=== PATIENT | female | born 1940 | race Asian ===

== ENCOUNTER 2025-01-18 02:08 | Inpatient (IN) | payer OTHER, SELFPAY ==
[2025-01-17 21:08] VITALS: BP 163/73
[2025-01-17 21:25] LABS: % Basophils 0.8 % (0-2); % Eosinophils 4.5 % (0-6); % Immature Granulocytes 0.5 % (0-0.5); % Lymphocytes 22.6 % (20.5-51.1); % Neutrophils 59.6 % (42.2-75.2); Absolute Basophils 0.1 10^3/uL (0-0.2); Absolute Eosinophils 0.5 10^3/uL (0-0.7); Absolute Immature Granulocytes 0.1 10^3/uL (0-0.05); Absolute Lymphocytes 2.4 10^3/uL (1.2-3.4); Absolute Monocytes 1.3 10^3/uL (0.1-0.6); Absolute Neutrophils 6.3 10^3/uL (1.4-6.5); Hematocrit 37.1 % (37.0-47.0); Hemoglobin 12.1 g/dL (12.0-16.0); Mean Corp Hgb Conc. 32.6 g/dL (33.0-37.0); Mean Corpuscular Hgb 29.1 pg (27.0-31.0); Mean Corpuscular Volume 89.2 fL (81.0-99.0); Mean Platelet Volume 9.5 fL (7.4-10.4); Nucleated Red Blood Cells % 0 %; Platelet Count 441 10^3/uL (130-400); Red Blood Cell Count 4.16 10^6/uL (4.20-5.40); Red Cell Dist. Width 14.4 % (11.5-14.5); White Blood Cell Count 10.6 10^3/uL (4.8-10.8)
[2025-01-17 21:48] LABS: ALT (SGPT) 15 U/L (0-35); AST (SGOT) 16 U/L (14-36); Albumin 4.5 g/dl (3.5-5.0); Alkaline Phosphatase 100 U/L (38-126); Blood Urea Nitrogen 30 mg/dl (7-17); Calcium 9.4 mg/dl (8.4-10.2); Carbon Dioxide 21 mmol/L (22-30); Chloride 102 mmol/L (98-107); Glucose 111 mg/dl (70-99); Potassium 6.1 mmol/L (3.5-5.1); Sodium 136 mmol/L (135-145); Total Bilirubin 0.5 mg/dl (0.2-1.3); Total Protein 8.1 g/dl (6.3-8.2)
[2025-01-17 22:07] VITALS: BP 163/76
[2025-01-17 22:12] VITALS: BMI 26.5
[2025-01-17 23:00] VITALS: BP 145/61
[2025-01-18] VITALS (11 sets, daily range): BP systolic 125–161; BP diastolic 61–79; BMI 26.9
--- NOTE | 2025-01-18 00:01 | ED.GENMED ---
History of Present Illness
General
Chief Complaint: Abnormal Lab Value
Source: patient
Exam Limitations: none
Time Seen by Provider: 01/17/25 22:09
Nursing documentation reviewed up to this point in time: agreed with
History of Present Illness
History of Present Illness:
Patient is an 84-year-old female with past medical history of coronary disease, congestive heart failure anemia hypertension asthma was brought to the ER by family. Patient is from [facility] she has been here since November and is planning to return to
[facility] in April. She has been here however several times in the past. She does have a history of kidney issues for the past year. She was sent for abnormal potassium. Patient has been feeling tired but no other complaints. Blood work was
brought by family shows a creatinine of 2.65 taken October 2024. She still does make urine.
She denies any chest pain shortness of breath/fever chills.
She does still make urine.
Past History
Past History
ED Past Medical History: HTN and Other (Restless leg)
ED Past Surgical History: Cholecystectomy, and Orthopedic (Knee replacement)
Social History
Tobacco: Non-smoker
Alcohol: None
Drug: None
Living: with family
Employment: Retired
Review of Systems
Review of Systems
Allergies reviewed?: Yes
Other source history: family
All Other Systems: ROS reviewed and negative except as documented in HPI and ROS
Constitutional: Reports fatigue; Denies fever or chills
EENT: Reports no symptoms
Respiratory: Reports no symptoms
Cardiac: Reports no symptoms
ABD/GI: Reports no symptoms
: Reports no symptoms
Musculoskeletal: Reports no symptoms
Skin: Reports no symptoms
Neurological: Reports no symptoms
Psychiatric: Reports no symptoms
Phy Exam
General Physical Exam
General Presentation: well appearing
General age: appears stated age
General Skin: warm and dry
General Habitus: normal
General Mental: alert
General Hydration: appears well hydrated
Cardiovascular Exam
Cardiovascular Exam: regular rate/rhythm, no murmur and normal peripheral pulses
Pulmonary Exam
Pulmonary Exam: lungs clear and no respiratory distress
Neurological Exam
Neurological Exam: alert and oriented x3
Musculoskeletal Exam
Musculoskeletal Exam: full ROM
Skin Exam
Skin Exam: normal color and warm/dry
Psychiatric Exam
Psychiatric Exam: normal mood/affect
Course
Orders/Labs/Results
Orders:
Orders
01/17/25 21:08
EKG [Electrocardiogram (*1)] Urgent
Reason for Study: Chest Pain
01/17/25 21:09
EKG- Treatment ONCE
01/17/25 21:19
CBC/With Diff [Complete Blood Count/With Diff] Urgent
CMP [Comprehensive Metabolic Panel] Urgent
01/18/25 00:07
Sodium Zirconium Cyclosilicate [Lokelma] 10 gram PO NOW STA
01/18/25 00:13
Cardiac Monitoring- Treatment ONCE
Dextrose 50%-Water [Dextrose 50% Syringe] 25 grams IV NOW STA
Insulin Human Regular [Novolin R] 5 units IV NOW STA
01/18/25 00:14
Sodium Bicarbonate 50 meq IV NOW STA
Bedside Glucose PRE IV Insulin- HyperK+ NOW
01/18/25 00:15
UA Reflex to Culture [Urinalysis Reflex To Culture] Urgent
01/18/25 00:46
Insulin Human Regular [Novolin R] 100 units .ROUTE .STK-MED ONE
01/18/25 01:34
EKG [Electrocardiogram (*1)] Urgent
Reason for Study: Other
Other Reason for Exam: admission
EKG- Treatment ONCE
01/18/25 01:44
Bedside Glucose POST IV Insulin- HyperK+ Q1HX2,Q2HX2
01/18/25 02:00
Flush (0.9% Sodium Chloride) [Flush (Nss)] See Dose Instructions IV PER PROTOCOL
01/18/25 02:44
Potassium Urgent
Comment: draw 2 hours after regular insulin IV administration
Abnormal Lab Results
01/17/25 01/18/25 01/18/25
21:19 00:27 01:07
RBC 4.16 L 10^6/uL
(4.20-5.40)
MCHC 32.6 L g/dL
(33.0-37.0)
Plt Count 441 H 10^3/uL
(130-400)
Abs Immat Gran (auto) 0.1 H 10^3/uL
(0-0.05)
Absolute Monos (auto) 1.3 H 10^3/uL
(0.1-0.6)
Monocytes % 12.0 H %
(1.7-9.3)
Potassium 6.1 H* mmol/L
(3.5-5.1)
Carbon Dioxide 21 L mmol/L
(22-30)
BUN 30 H mg/dl
(7-17)
Creatinine 3.1 H mg/dL
(0.6-1.0)
Glucose 111 H mg/dl
(70-99)
POC Glucose 103 H mg/dl 230 H mg/dl
(70-99) (70-99)
01/18/25
01:34
RBC
MCHC
Plt Count
Abs Immat Gran (auto)
Absolute Monos (auto)
Monocytes %
Potassium
Carbon Dioxide
BUN
Creatinine
Glucose
POC Glucose 194 H mg/dl
(70-99)
01/17/25 21:19
Vital Signs
Initial and Last Documented VS:
Initial Vital Signs
Temp Pulse Resp BP Pulse Ox
98.3 F 85 15 163/73 99
01/17/25 21:08 01/17/25 21:08 01/17/25 21:08 01/17/25 21:08 01/17/25 21:08
Last Documented Vital Signs
Temp Pulse Resp BP Pulse Ox
98.3 F 71 18 145/61 99
01/17/25 21:08 01/17/25 23:00 01/17/25 23:00 01/17/25 23:00 01/17/25 23:00
Aircraft Design Engineer consulted with Physician
Aircraft Design Engineer consulted with physician?: Yes
Name of Physician Consulted: Columba
MDM/Problems Addressed
Differential Diagnosis Includes:
Renal failure hyperkalemia
MDM/Problems Addressed:
Patient is a 84-year-old female with chronic renal issues from [facility] visiting from November 2024 and planning to go back to [facility] in April presents for evaluation of elevated potassium. She had elevated blood potassium on outpatient blood work.
Patient denies any chest pain shortness of breath she does feel tired however no other complaints she does still make urine. Her potassium here is 6 .1 creatinine is 3.1 bun 30.
No acute findings on EKG. Case discussed ED physician hyperkalemic meds ordered. Will admit patient for further evaluation will need nephrology consult.
Chronic conditions affecting care:
Chronic renal issues
*Pulse Oximetry
Patient hypoxic: no
*EKG
Interpreted by ED Provider?: Yes
Heart Rate: 76
Rate: normal
Rhythm: sinus
Ischemia: no ischemia
*Critical Care Note
Total Time (30-74mins, 75-104mins- exclusive of procedures): Not Applicable
ED Attending Note
-
Portions of this chart may have been created with voice recognition software.� Occasional wrong word or��sound alike� substitutions may have occurred due to the inherent limitations of voice recognition software.
Discharge Plan
Departure
Patient Disposition: Admit
Date of Disposition: 01/18/25
Time of Disposition: 00:19
Admit to: Telemetry
Admit to doctor: hospitalist
Presentation/result/management discussed w/ accepting MD/DO: Hospitalist
Patient with high blood pressure during this ER visit?: Yes
Condition: Fair
Covid-19: Not Applicable
Discharge Problem:
Acute hyperkalemia, Acute on chronic renal insufficiency
Prescriptions:
No Action
desloratadine 5 mg Tablet
5 mg PO DAILY
montelukast 10 mg Tablet
10 mg PO DAILY
multivitamin Capsule
2 cap PO DAILY
gabapentin 300 mg Tablet
300 mg PO HS
losartan-hydrochlorothiazide 50-12.5 mg Tablet
1 tab PO DAILY
Alpha-Ketoglutaric Acid Capsule
1 cap PO TID
torsemide 10 mg Tablet
10 mg PO DAILY
sodium bicarbonate 650 mg Tablet
1,000 mg PO BID
ferrous sulfate 27 mg iron Tablet
27 mg PO DAILY
Referrals:
Dnany Baugh MD [Family Provider] -
Interventions
Interventions:
*Risk Screen - Suicide Last Done: 01/17/25 21:08
*General Assessment Last Done: 01/17/25 21:08
*Neglect/Abuse Screening Last Done: 01/17/25 21:08
*ED- Fall Risk Assessment Last Done: 01/17/25 22:12
*ED COVID-19 Vaccine History Last Done: 01/17/25 22:12
Discharge Date and Time
Print Language: MONGOLIAN
[2025-01-18 00:29] LABS: Glucose - Point of Care 103 mg/dl (70-99)
[2025-01-18] MEDS: DEXTROSE 50% SYRINGE 25 GRAMS IV ×3 (00:33→20:24)
[2025-01-18] MEDS: NOVOLIN R 5 UNITS IV (00:33)
[2025-01-18] MEDS: LOKELMA 10 GRAM PO ×3 (00:34→17:29)
[2025-01-18] MEDS: SODIUM BICARBONATE 50 MEQ IV (00:34)
[2025-01-18 01:09] LABS: Glucose - Point of Care 230 mg/dl (70-99)
[2025-01-18 01:36] LABS: Glucose - Point of Care 194 mg/dl (70-99)
--- NOTE | 2025-01-18 01:39 | HPS.HSE ---
Family Physician
-
Family Physician: Danny Baugh
Chief Complaint
-
Abnormal Labs / Fatigue
History of Present Illness
Patient is an 84y F with PMH significant for hypertension and CKD who presents to ED for evaluation of abnormal labs. Patient is visiting from [place]. Family states that she has seemed very fatigued and so she had labs done on 01/15. These
showed abnormal SCr and potassium and patient was advised to present to the ED for further evaluation.
Patient complains of general fatigue. She reports some back pain that tends to occur with standing / activity. This is mostly L-sided.
No urinary complaints.
No recent medication changes.
No other new complaints.
Medical History
Past Medical History
Past Medical History: Reports Other
Additional Past Medical History:
Hypertension
CKD IV
Chronic HFpEF
Anemia of CKD
Past Surgical History: Reports Other
Additional Past Surgical History:
Cholecystectomy
Bilateral TKA
x 2
Social History
Tobacco: Non-smoker
Alcohol: None
Drug: None
Family History
Family History: Other (Mother: CKD)
Allergies / Home Medications
Allergies reflects when Allergies were last updated in [employer].
Home Medications with original date entered in [employer]
Allergy/Medication List:
Losartan / HCT 50/12.5mg one PO daily
Torsemide 10mg one PO daily
[place] XT one PO TID (renal supplement for CKD)
Cilnidipine 10mg one PO TID
Iron 30mg one PO daily
Desidustat 150mg one PO MOWEFR
Sodium Bicarbonate 1000mg one PO daily
Review of Systems
-
History Source: Patient and Family
A 12 point ROS was completed and negative except as noted: Yes
Constitutional: Reports Fatigue; Denies Fever or Chills
Respiratory: Denies Cough or Trouble Breathing
Cardiac: Denies Chest Pain or Palpitations
Abdomen/GI: Denies Abdominal Pain, Nausea, Vomiting or Diarrhea
: Denies Dysuria or Frequency
Musculoskeletal: Reports Other (Back pain); Denies Edema
Neurological: Denies Dizzy or Headache
Psych: Denies Depression or Anxiety
Physical Exam
Vital Signs
Vital Signs
Temp Pulse Resp BP Pulse Ox
98.3 F 71 18 145/61 99
01/17/25 21:08 01/17/25 23:00 01/17/25 23:00 01/17/25 23:00 01/17/25 23:00
Physical Exam
General: Other (84y F in no acute distress.)
HEENT: Moist mucous membranes and PERRLA
Respiratory: Clear; No Wheezes, Rales or Rhonchi
Cardiac: S1/S2 and Regular Rhythm; No Murmur
GI: Soft, Non Tender, Non Distended and Normal Bowel Sounds
Musculoskeletal: No Clubbing, No Cyanosis and No Edema
Neuro: AO x 3
Laboratory Results
-
01/17/25 21:19
Laboratory Results
Total Bilirubin 0.5 mg/dl (0.2-1.3) 01/17/25 21:19
AST 16 U/L (14-36) 01/17/25 21:19
ALT 15 U/L (0-35) 01/17/25 21:19
Alkaline Phosphatase 100 U/L (38-126) 01/17/25 21:19
Impression/Plan
-
A/P: Patient is an 84y F with PMH significant for hypertension and CKD who presents to ED for evaluation of fatigue and abnormal labs.
ISABEL on CKD IV
Hyperkalemia
Chronic Metabolic Acidosis
- Admit for further evaluation and treatment.
- SCr = 3.1 compared to baseline of 2.65 (labs from [place] in October 2024). Was 3.28 on 01/15/25.
- Potassium = 6.1 today - 4.8 on prior labs.
- EKG unremarkable without apparent hyperkalemia changes.
- Hold losartan acutely. Hold diuretics for now.
- IVF support overnight and follow for improvement in labs.
- Continue NaHCO3 supplementation / adjust dose.
- Nephrology evaluation in the AM for additional recommendations.
- Check renal US.
Benign Hypertension
- BP stable in the ED.
- Holding meds acutely as noted above.
- Add CCB if needed for BP control (takes cilnidipine from [place] - 10mg TID).
Chronic HFpEF
- No evidence of volume overload on exam.
- Hold torsemide as noted above.
- Follow I/Os, daily weights, etc.
Anemia of Chronic Disease
- Hgb increased from prior / known baseline.
- Follow for changes.
- Hold oral iron / EPO agents acutely.
DVT Prophylaxis: Subcut Heparin
Code Status: Full
[2025-01-18 02:05] LABS: Urine Albumin 3+ (Neg - Trace); Urine Bilirubin Negative (Negative); Urine Character Clear (Clear); Urine Color Yellow; Urine Glucose 1+ (Negative); Urine Ketone Negative (Negative); Urine Leukocyte Negative (Negative); Urine Nitrite Negative (Negative); Urine Occult Blood Negative (Negative); Urine Urobilinogen Negative (Neg - 1+)
[2025-01-18 02:35] LABS: Glucose - Point of Care 125 mg/dl (70-99)
[2025-01-18 02:49] LABS: Urine Amorphous Seen; Urine Bacteria Few (Negative); Urine Red Blood Cell 0-2 /HPF (0-2); Urine White Cell 0-2 /HPF (0-5)
[2025-01-18 02:56] LABS: Potassium 4.5 mmol/L (3.5-5.1)
[2025-01-18] MEDS: NSS 1000 IV ×2 (03:37→14:57)
[2025-01-18 04:36] LABS: Glucose - Point of Care 68 mg/dl (70-99)
--- NOTE | 2025-01-18 04:53 | TRANSFER ---
Pt brought up from the ED on a stretcher. Pt ambulated w/ walker (personal cane not available) ax1. Oriented to the room. Family (son/ granddaughter) helped settle the pt and answer admission questions. Pt and family were updated on plan of care for
the night. Family expressed that they would like to be called during rounds ( pt has a personal cell phone at the bedside to use). pt resting with call still and personal belongings within reach.
[2025-01-18 05:00] LABS: Glucose - Point of Care 84 mg/dl (70-99)
[2025-01-18 06:46] LABS: Glucose - Point of Care 86 mg/dl (70-99)
[2025-01-18 07:13] LABS: Hematocrit 32.2 % (37.0-47.0); Hemoglobin 10.6 g/dL (12.0-16.0); Mean Corp Hgb Conc. 32.9 g/dL (33.0-37.0); Mean Corpuscular Hgb 29.4 pg (27.0-31.0); Mean Corpuscular Volume 89.2 fL (81.0-99.0); Mean Platelet Volume 10.3 fL (7.4-10.4); Platelet Count 405 10^3/uL (130-400); Red Blood Cell Count 3.61 10^6/uL (4.20-5.40); Red Cell Dist. Width 14.4 % (11.5-14.5); White Blood Cell Count 8.8 10^3/uL (4.8-10.8)
--- NOTE | 2025-01-18 08:09 | W.PN.HOSP.TC ---
Today's Communication/Plan
-
Persistent hyperkalemia with possible mild hyperkalemia EKG changes -- ordered calcium gluconate, Insulin, Dextrose, Lokelma. Bicarb increased,
Recheck potassium/BMP this evening
Assessment / Plan
Assessment / Plan
Physical Exam
General: Not in acute distress
HEENT: Moist mucous membranes
Respiratory: Clear to Auscultation Bilaterally
Cardiac: S1/S2 and Regular Rate Rhythm
GI: Soft, Non Tender, Non Distended and Normal Bowel Sounds
Musculoskeletal: No Cyanosis and No Edema
Neuro: AAO x 3
Assessment/Plan
84y F with PMH significant for hypertension and CKD who presents to ED for evaluation of abnormal labs. Patient is visiting from [facility]. Family stated that she had seemed very fatigued and so she had labs done on 01/15/25. These showed abnormal
SCr and potassium and patient was advised to present to the ED for further evaluation.
Patient complained of general fatigue. She reported some back pain that tends to occur with standing / activity. This is mostly L-sided.
No urinary complaints.
No recent medication changes.
No other new complaints.
ISABEL on CKD IV
Hyperkalemia
Chronic Metabolic Acidosis
- Admit for further evaluation and treatment.
- SCr = 3.1 compared to baseline of 2.65 (labs from [facility] in October 2024). Was 3.28 on 01/15/25.
- Potassium = 6.1 today - 4.8 on prior labs.
- EKG unremarkable without apparent hyperkalemia changes.
- Stop Losartan indefinitely. Hold diuretics for now.
- IVF support overnight and follow for improvement in labs.
- Continue NaHCO3 supplementation -- dose increased
- Nephrology evaluation in the AM for additional recommendations.
- Additional (second) hyperkalemia regimen with Lokelma and Insulin/Dextrose given on 01/18/25 given potassium still high at 5.9
- EKG with sharp looking T waves and borderline prolonged WI interval, and in the setting of hyperkalemia --> provided 1 gram Calcium Gluconate
- Follow-up renal US.
Benign Hypertension
- BP stable in the ED.
- Holding meds acutely as noted above.
- Add CCB if needed for BP control (takes cilnidipine from [place] - 10mg TID).
Chronic HFpEF
- No evidence of volume overload on exam.
- Hold torsemide as noted above.
- Follow I/Os, daily weights, etc.
Anemia of Chronic Disease
- Hgb increased from prior / known baseline.
- Follow for changes.
- Hold oral iron / EPO agents acutely.
DVT Prophylaxis: Subcutaneous Heparin
Code Status: Full Code
Anticipated Discharge: 24 - 48 hours
Subjective/Interval History
-
Date of Service: January 18, 2025
Patient was seen and examined. She denied any symptoms or complaints.
Objective Data
-
Labs:
Laboratory Results
01/17/25 01/18/25 01/18/25
21:19 02:36 06:21
WBC 10.6 8.8
Hgb 12.1 10.6 L
Hct 37.1 32.2 L
Plt Count 441 H 405 H
Sodium 136 Pending
Potassium 6.1 H* 4.5 D Pending
Chloride 102 Pending
Carbon Dioxide 21 L Pending
BUN 30 H Pending
Creatinine 3.1 H Pending
Glucose 111 H Pending
Calcium 9.4 Pending
Total Bilirubin 0.5
AST 16
ALT 15
Alkaline Phosphatase 100
Vital Signs:
Vital Signs
Temp Pulse Resp BP Pulse Ox
98.0 F 74 20 157/74 100
01/18/25 03:20 01/18/25 03:20 01/18/25 03:20 01/18/25 03:20 01/18/25 03:20
[2025-01-18] MEDS: SODIUM BICARBONATE 650 MG PO (09:09)
[2025-01-18] MEDS: HEPARIN 5000 UNITS SC ×2 (09:09→20:26)
[2025-01-18 09:15] LABS: Glucose - Point of Care 86 mg/dl (70-99)
[2025-01-18 10:28] LABS: Blood Urea Nitrogen 29 mg/dl (7-17); Calcium 8.8 mg/dl (8.4-10.2); Carbon Dioxide 16 mmol/L (22-30); Chloride 105 mmol/L (98-107); Estimated Creatinine Clearance 12 ml/min; Glucose 86 mg/dl (70-99); Potassium 5.9 mmol/L (3.5-5.1); Sodium 136 mmol/L (135-145); eGFR 14.77
[2025-01-18 12:10] LABS: Glucose - Point of Care 75 mg/dl (70-99)
--- NOTE | 2025-01-18 12:49 | CM ---
Spoke with patient's daughter to obtain information for assessment. Patient lives in [place] but [place] now visiting her daughter. She is staying in a two story home with two steps to enter. She does need some
assistance with dressing, bathing, personal care and ADLs. Patient's 25 y/o granddaughter is with her throughout the day and she is home in the evenings. She uses a walker to assist with her ambulation but also has a cane as well as a stair glide.
She has a nebulizer and an o2 concentrator but hasn't been using it. Patient's daughter and granddaughter do all of the cooking, cleaning, laundry and coil binder. Patient has not had VN services. She has not been to a SNF.
Patient has a prescription plan and uses, [facility] in [place] for all of her medications.
Her PCP is Danny Baugh.
Plan: Case management will continue to follow and assist with discharge planning. Patient does not have [employer] insurance. Will have to confirm that she met with [facility] rep.
--- NOTE | 2025-01-18 12:52 | PTCARENOTE ---
Pt is being trf'd to IMU for hyperkalemia protocol.
[2025-01-18] MEDS: NOVOLIN R 0.05 UNITS IV ×2 (14:33→20:25)
[2025-01-18 14:44] LABS: Glucose - Point of Care 165 mg/dl (70-99)
[2025-01-18] MEDS: CALCIUM GLUCONATE 100 IV (14:56)
[2025-01-18] MEDS: LOKELMA PO (15:02)
--- NOTE | 2025-01-18 15:02 | W.CON.NEPH ---
Consultation
-
Date/Time Consultation Requested: January 17, 2025 at 10 PM
Date/Time Consultation Performed: January 18, 2025 at 3 PM
Requesting Provider: Dr. Kaiser
Performing Provider: Dr. Nunez
Reason for Consultation: Acute on chronic kidney disease and hyperkalemia
Medical History
-
Chief Complaint: Hyperkalemia
History of Present Illness:
84y F with PMH significant for hypertension and CKD who presents to ED for evaluation of abnormal labs. Patient is visiting from [facility]. Family states that she has seemed very fatigued and so she had labs done on 01/15. These showed abnormal SCr
and potassium and patient was advised to present to the ED for further evaluation.
Patient follows with nephrology in [facility] with baseline creatinine 2.7 with estimated GFR of 17 mL/min reviewed outpatient records.
Labs here in [facility] creatinine 3.6 with a potassium of 6.8
Hospital labs creatinine 3.2 potassium 6.1 treated medical management repeat 5.9
Past Medical History
CKD stage IV anemia of chronic disease, hypertension
Social History
Tobacco: Non-Smoker
Alcohol: None
Allergies / Home Medications
Allergy/AdvReac Type Severity Reaction Status Date / Time
No Known Allergies Allergy Unverified 05/14/22 22:51
�Medication �Instructions �Recorded �Confirmed �Type
desloratadine 5 mg tablet 5 mg PO DAILY Allergies 05/14/22 01/18/25 History
gabapentin 300 mg tablet 300 mg PO HS Neuropathy/RLS 05/14/22 01/18/25 History
montelukast 10 mg tablet 10 mg PO DAILY asthma 05/14/22 01/18/25 History
multivitamin 2 cap PO DAILY Supplement 05/14/22 01/18/25 History
amino acids 1 cap PO TID 01/18/25 01/18/25 History
ferrous sulfate 27 mg iron tablet 27 mg PO DAILY 01/18/25 01/18/25 History
losartan 50 mg-hydrochlorothiazide 1 tab PO DAILY 01/18/25 01/18/25 History
12.5 mg tablet
sodium bicarbonate 650 mg tablet 1,000 mg PO BID 01/18/25 01/18/25 History
torsemide 10 mg tablet 10 mg PO DAILY 01/18/25 01/18/25 History
Review of Systems
-
Generalized weakness
All other systems: Negative unless noted
Physical Exam
Vital Signs
Vital Signs
Temp Pulse Resp BP Pulse Ox
98.0 F 72 18 145/74 100
01/18/25 14:26 01/18/25 11:39 01/18/25 11:39 01/18/25 11:39 01/18/25 11:39
Lab Results
WBC 8.8 10^3/uL (4.8-10.8) 01/18/25 06:21
RBC 3.61 10^6/uL (4.20-5.40) L 01/18/25 06:21
Hgb 10.6 g/dL (12.0-16.0) L 01/18/25 06:21
Hct 32.2 % (37.0-47.0) L 01/18/25 06:21
Plt Count 405 10^3/uL (130-400) H 01/18/25 06:21
Sodium 136 mmol/L (135-145) 01/18/25 06:21
Chloride 105 mmol/L (98-107) 01/18/25 06:21
Carbon Dioxide 16 mmol/L (22-30) L 01/18/25 06:21
BUN 29 mg/dl (7-17) H 01/18/25 06:21
Creatinine 3.0 mg/dL (0.6-1.0) H 01/18/25 06:21
eGFR 14.77 01/18/25 06:21
Glucose 86 mg/dl (70-99) 01/18/25 06:21
Calcium 8.8 mg/dl (8.4-10.2) 01/18/25 06:21
Albumin 4.5 g/dl (3.5-5.0) 01/17/25 21:19
Physical Exam
General no acute distress
HEENT no cephalic atraumatic extraocular muscle intact no scleral icterus no JVD neck supple
lungs clear to auscultation bilateral
heart regular S1-S2 positive
abdomen soft nontender positive bowel sounds
extremities no edema pulses present bilateral
Neurologically nonfocal alert and oriented x 3
Skin no lesions no abrasions no petechiae
Psych normal affect no bizarre behavior
Data Reviewed
-
Labs: Labs Reviewed by me, Discussed with Nurse, Discussed with Patient and Discussed with Family
Assessment/Plan
-
84y F with PMH significant for hypertension and CKD who presents to ED for evaluation of abnormal labs. Patient is visiting from [place]. Family states that she has seemed very fatigued and so she had labs done on 01/15. These showed abnormal SCr
and potassium and patient was advised to present to the ED for further evaluation.
Patient follows with nephrology in [facility] with baseline creatinine 2.7 with estimated GFR of 17 mL/min reviewed outpatient records.
Labs here in [facility] creatinine 3.6 with a potassium of 6.8
Hospital labs creatinine 3.2 potassium 6.1 treated medical management repeat 5.9
Impression.
Chronic kidney disease stage IV
Hyperkalemia
Hypertension
Metabolic acidosis
Plan.
Redosed Lokelma with insulin and glucose as well as calcium with mild EKG change
Repeat labs at about 6 PM tonight
No acute need for dialysis
Increase bicarbonate to 2 tablets 3 times a day she takes 1 g twice daily
Discontinue losartan indefinite
Discussed with the family at bedside
--- NOTE | 2025-01-18 15:47 | PTCARENOTE ---
Pt arrived at 1420 with family at bedside. Accu check done D50 25 grams given insulin given Q1 hr acucheck in progress, then q2. Pt is AAAOx3 speaks some [place]ib[place]ian understands more.
[2025-01-18 15:52] LABS: Glucose - Point of Care 147 mg/dl (70-99)
[2025-01-18 16:43] LABS: Glucose - Point of Care 112 mg/dl (70-99)
[2025-01-18] MEDS: SODIUM BICARBONATE 1300 MG PO ×2 (17:29→21:30)
[2025-01-18 18:47] LABS: Glucose - Point of Care 91 mg/dl (70-99)
[2025-01-18 19:11] LABS: Blood Urea Nitrogen 25 mg/dl (7-17); Calcium 9.6 mg/dl (8.4-10.2); Carbon Dioxide 22 mmol/L (22-30); Chloride 106 mmol/L (98-107); Estimated Creatinine Clearance 14 ml/min; Glucose 104 mg/dl (70-99); Potassium 5.8 mmol/L (3.5-5.1); Sodium 137 mmol/L (135-145); eGFR 16.76
[2025-01-18 20:35] LABS: Glucose - Point of Care 136 mg/dl (70-99)
[2025-01-18] MEDS: NEURONTIN 300 MG PO (21:29)
[2025-01-18 21:39] LABS: Glucose - Point of Care 159 mg/dl (70-99)
[2025-01-18 22:35] LABS: Glucose - Point of Care 154 mg/dl (70-99)
[2025-01-18 22:42] LABS: Potassium 4.6 mmol/L (3.5-5.1)
--- NOTE | 2025-01-18 23:11 | PTCARENOTE ---
Assumed care for patient overnight, received report from heidi RN. Pt AAOx3, speaks minimal Setswana. Pt had daughter at bedside. K 5.8 PAYAM Jenkins made aware, order for dextrose and insulin in and administered. K down to 4.6. Pt and daughter
educated on hyperkalemia protocol and POC reinforced. IVF cont. Pt ambulating to the bathroom with standby assistance and RW. NSR on the monitor with 1st degree heart block. Pt on room air SpO2 99%. After ambulation pt slightly dyspneic with
expiratory wheeze. Oral care and hygiene done. Call still is within reach. Pt utilizing the call still appropriately.
[2025-01-19] VITALS (13 sets, daily range): BP systolic 107–169; BP diastolic 55–93; BMI 27.0
[2025-01-19] MEDS: NSS 1000 IV (00:39)
[2025-01-19 00:46] LABS: Glucose - Point of Care 91 mg/dl (70-99)
[2025-01-19 02:41] LABS: Glucose - Point of Care 71 mg/dl (70-99)
[2025-01-19] MEDS: LOKELMA 10 GRAM PO ×3 (05:48→18:26)
[2025-01-19 06:04] LABS: % Basophils 0.9 % (0-2); % Eosinophils 6.7 % (0-6); % Immature Granulocytes 0.3 % (0-0.5); % Lymphocytes 21.7 % (20.5-51.1); % Monocytes 12.1 % (1.7-9.3); % Neutrophils 58.3 % (42.2-75.2); Absolute Basophils 0.1 10^3/uL (0-0.2); Absolute Eosinophils 0.6 10^3/uL (0-0.7); Absolute Lymphocytes 1.9 10^3/uL (1.2-3.4); Absolute Monocytes 1.1 10^3/uL (0.1-0.6); Absolute Neutrophils 5.2 10^3/uL (1.4-6.5); Hemoglobin 10.8 g/dL (12.0-16.0); Mean Corp Hgb Conc. 32.7 g/dL (33.0-37.0); Mean Corpuscular Hgb 29.5 pg (27.0-31.0); Mean Corpuscular Volume 90.2 fL (81.0-99.0); Mean Platelet Volume 9.9 fL (7.4-10.4); Nucleated Red Blood Cells % 0 %; Platelet Count 381 10^3/uL (130-400); Red Blood Cell Count 3.66 10^6/uL (4.20-5.40); Red Cell Dist. Width 14.7 % (11.5-14.5); White Blood Cell Count 8.9 10^3/uL (4.8-10.8)
[2025-01-19 06:31] LABS: Blood Urea Nitrogen 21 mg/dl (7-17); Calcium 8.5 mg/dl (8.4-10.2); Carbon Dioxide 22 mmol/L (22-30); Chloride 111 mmol/L (98-107); Estimated Creatinine Clearance 14 ml/min; Glucose 83 mg/dl (70-99); Magnesium 1.6 mg/dl (1.6-2.3); Potassium 5.2 mmol/L (3.5-5.1); Sodium 140 mmol/L (135-145); eGFR 17.54
[2025-01-19] MEDS: HEPARIN 5000 UNITS SC ×2 (08:54→19:52)
[2025-01-19] MEDS: SODIUM BICARBONATE 1300 MG PO ×3 (08:54→22:01)
--- NOTE | 2025-01-19 10:55 | W.PN.HOSP.TC ---
Today's Communication/Plan
-
Stop IVF
c/w Lokelma
Add amlodipine for bP
Assessment / Plan
Assessment / Plan
Physical Exam
General: Not in acute distress
HEENT: Moist mucous membranes
Respiratory: Clear to Auscultation Bilaterally
Cardiac: S1/S2 and Regular Rate Rhythm
GI: Soft, Non Tender, Non Distended and Normal Bowel Sounds
Musculoskeletal: No Cyanosis and No Edema
Neuro: AAO x 3
Psych: calm
Assessment/Plan
84y F with PMH significant for hypertension and CKD who presents to ED for evaluation of abnormal labs. Patient is visiting from [facility]. Family stated that she had seemed very fatigued and so she had labs done on 01/15/25. These showed abnormal
SCr and potassium and patient was advised to present to the ED for further evaluation.
Patient complained of general fatigue. She reported some back pain that tends to occur with standing / activity. This is mostly L-sided.
No urinary complaints.
No recent medication changes.
No other new complaints.
ISABEL on CKD IV
Hyperkalemia
Chronic Metabolic Acidosis
- Admit for further evaluation and treatment.
- SCr = 3.1 compared to baseline of 2.65 (labs from [facility] in October 2024). Was 3.28 on 01/15/25.
- Potassium = 5.2 - 4.8 on prior labs.
- EKG unremarkable without apparent hyperkalemia changes.
- Stop Losartan indefinitely. Hold diuretics for now.
- IVF support overnight and follow for improvement in labs.
- Continue NaHCO3 supplementation -- dose increased ( Increase bicarbonate to 2 tablets 3 times a day she takes 1 g twice daily)
- Nephrology evaluation in the AM for additional recommendations.
- Additional (second) hyperkalemia regimen with Lokelma and Insulin/Dextrose given on 01/18/25 given potassium still high at 5.9
- EKG with sharp looking T waves and borderline prolonged AK interval, and in the setting of hyperkalemia --> provided 1 gram Calcium Gluconate
- Follow-up renal US.
Benign Hypertension
- BP stable in the ED.
-Add amlodipine for BP (takes cilnidipine from [facility] - 10mg TID).
Chronic HFpEF
- No evidence of volume overload on exam.
- Resume torsemide upon dc
- Follow I/Os, daily weights, etc.
Anemia of Chronic Disease
- Hgb increased from prior / known baseline.
- Follow for changes.
- Hold oral iron / EPO agents acutely.
DVT Prophylaxis: Subcutaneous Heparin
Code Status: Full Code
Total time spent to see the patient, examine the patient, review data and lab result, discuss treatment plan with the patient, nursing staff around 55 minutes
Anticipated Discharge: 24 - 48 hours
Subjective/Interval History
-
Date of Service: January 19, 2025
No sob
No chest pain
Objective Data
-
Labs:
Laboratory Results
01/19/25
05:49
WBC 8.9
Hgb 10.8 L
Hct 33.0 L
Plt Count 381
Sodium 140
Potassium 5.2 H
Chloride 111 H
Carbon Dioxide 22
BUN 21 H
Creatinine 2.6 H
Glucose 83
Calcium 8.5
Vital Signs:
Vital Signs
Temp Pulse Resp BP Pulse Ox
97.9 F 68 16 148/55 98
01/19/25 07:35 01/19/25 08:00 01/19/25 08:00 01/19/25 08:00 01/19/25 09:14
I&O
01/18/25 01/19/25 01/20/25
06:59 06:59 06:59
Intake Total 1280 / 1280
Output Total 500 / 500
Balance 780 / 780
--- NOTE | 2025-01-19 12:44 | W.PN.NEPH.PH ---
Today's Communication / Plan
-
Okay for discharge from a renal standpoint
Assessment/Plan
-
84y F with PMH significant for hypertension and CKD who presents to ED for evaluation of abnormal labs. Patient is visiting from [place]. Family states that she has seemed very fatigued and so she had labs done on 01/15. These showed abnormal SCr
and potassium and patient was advised to present to the ED for further evaluation.
Patient follows with nephrology in [facility] with baseline creatinine 2.7 with estimated GFR of 17 mL/min reviewed outpatient records.
Labs here in [facility] creatinine 3.6 with a potassium of 6.8
Hospital labs creatinine 3.2 potassium 6.1 treated medical management repeat 5.9
Impression.
Chronic kidney disease stage IV
Hyperkalemia
Hypertension
Metabolic acidosis
Plan.
Redosed Lokelma with insulin and glucose as well as calcium with mild EKG change
Creatinine appears to be back to her baseline potassium 5.2
Okay for discharge from renal standpoint
Discussed with the daughter at bedside no angiotensin receptor alda going forward
Amlodipine was prescribed
Potassium restriction
-
-
Date of Service: January 19, 2025
CC / HPI / ROS
-
No chest pain shortness of breath nausea vomit
Labs
-
Labs:
WBC 8.9 10^3/uL (4.8-10.8) 01/19/25 05:49
RBC 3.66 10^6/uL (4.20-5.40) L 01/19/25 05:49
Hgb 10.8 g/dL (12.0-16.0) L 01/19/25 05:49
Hct 33.0 % (37.0-47.0) L 01/19/25 05:49
Plt Count 381 10^3/uL (130-400) 01/19/25 05:49
Sodium 140 mmol/L (135-145) 01/19/25 05:49
Potassium 5.2 mmol/L (3.5-5.1) H 01/19/25 05:49
Chloride 111 mmol/L (98-107) H 01/19/25 05:49
Carbon Dioxide 22 mmol/L (22-30) 01/19/25 05:49
BUN 21 mg/dl (7-17) H 01/19/25 05:49
Creatinine 2.6 mg/dL (0.6-1.0) H 01/19/25 05:49
eGFR 17.54 01/19/25 05:49
Glucose 83 mg/dl (70-99) 01/19/25 05:49
Calcium 8.5 mg/dl (8.4-10.2) 01/19/25 05:49
Albumin 4.5 g/dl (3.5-5.0) 01/17/25 21:19
Physical Exam
-
Vital Signs:
Vital Signs
Temp Pulse Resp BP Pulse Ox
97.5 F 68 16 148/55 98
01/19/25 11:15 01/19/25 08:00 01/19/25 08:00 01/19/25 08:00 01/19/25 09:14
--- NOTE | 2025-01-19 13:24 | PTCARENOTE ---
pt oob in chair x 2 hours. slight wheezing noted after pt transferred back to bed which is now stopped. granddaughter states pt uses albuterol inhaler prn at home if wheeziing gets bad. notified hospitalist.
[2025-01-19] MEDS: NSS IV (14:15)
[2025-01-19] MEDS: NORVASC 5 MG PO (19:52)
[2025-01-19] MEDS: NEURONTIN 300 MG PO (22:01)
--- NOTE | 2025-01-19 23:04 | PTCARENOTE ---
Pt AAOx3. Pt hypertensive 169/77. Norvasc dose administered. Pt ambulating to and from the bathroom with standby assistance and RW. Pt daughter bedside. NSR on the monitor. SpO2 99%. Lungs clear diminished. Pt utilizes the call still appropriately,
call still is within reach.
[2025-01-20] VITALS (7 sets, daily range): BP systolic 123–144; BP diastolic 53–102; BMI 27.0; BMI 26.9
[2025-01-20 05:49] LABS: Blood Urea Nitrogen 20 mg/dl (7-17); Calcium 8.7 mg/dl (8.4-10.2); Carbon Dioxide 24 mmol/L (22-30); Chloride 107 mmol/L (98-107); Estimated Creatinine Clearance 15 ml/min; Glucose 94 mg/dl (70-99); Potassium 4.3 mmol/L (3.5-5.1); Sodium 140 mmol/L (135-145); eGFR 18.39
[2025-01-20] MEDS: SODIUM BICARBONATE 1300 MG PO (08:08)
[2025-01-20] MEDS: NORVASC 10 MG PO (08:08)
[2025-01-20] MEDS: HEPARIN 5000 UNITS SC (08:08)
--- NOTE | 2025-01-20 09:01 | W.PN.HOSP.TC ---
Today's Communication/Plan
-
dc
No need for scripts
Assessment / Plan
Assessment / Plan
Physical Exam
General: Not in acute distress
HEENT: Moist mucous membranes
Respiratory: Clear to Auscultation Bilaterally
Cardiac: S1/S2 and Regular Rate Rhythm
GI: Soft, Non Tender, Non Distended and Normal Bowel Sounds
Musculoskeletal: No Cyanosis and No Edema
Neuro: AAO x 3
Psych: calm
Assessment/Plan
84y F with PMH significant for hypertension and CKD who presents to ED for evaluation of abnormal labs. Patient is visiting from [place]. Family stated that she had seemed very fatigued and so she had labs done on 01/15/25. These showed abnormal
SCr and potassium and patient was advised to present to the ED for further evaluation.
Patient complained of general fatigue. She reported some back pain that tends to occur with standing / activity. This is mostly L-sided.
No urinary complaints.
No recent medication changes.
No other new complaints.
ISABEL on CKD IV
Hyperkalemia
Chronic Metabolic Acidosis
- Admit for further evaluation and treatment.
- SCr = 3.1 compared to baseline of 2.65 (labs from [facility] in October 2024). Was 3.28 on 01/15/25.
- Potassium = 4.3
- EKG unremarkable without apparent hyperkalemia changes.
- Stopped HCTZ/ Losartan indefinitely. can resume PRN torsemide. She can go back on CCB medicine.
- Continue NaHCO3 supplementation -- dose increased ( Increase bicarbonate to 2 tablets 3 times a day she takes 1 g twice daily)
Given script to repeat BMP in 1 week.
- Nephrology evaluation in the AM for additional recommendations.
- Additional (second) hyperkalemia regimen with Lokelma and Insulin/Dextrose given on 01/18/25 given potassium still high at 5.9
- EKG with sharp looking T waves and borderline prolonged CO interval, and in the setting of hyperkalemia --> provided 1 gram Calcium Gluconate
- Follow-up renal US.
Benign Hypertension
- She can go back on home medicine Cilnidipine ( CCB from [facility]- she has alot of supply at home).
- Given amlodipine for BP
Chronic HFpEF
- No evidence of volume overload on exam.
- Resume torsemide upon dc
- not in HF.
Anemia of Chronic Disease
- Hgb increased from prior / known baseline.
- Follow for changes.
- Hold oral iron / EPO agents acutely.
DVT Prophylaxis: Subcutaneous Heparin
Code Status: Full Code
Total discharge time spent to see the patient, examine the patient, review data and lab result, discuss discharge plan with the patient, son at bed side, nursing staff around 67 minutes
Anticipated Discharge: Today
Subjective/Interval History
-
Date of Service: January 20, 2025
She feels better
No chest pain
No abdominal pain
Objective Data
-
Labs:
Laboratory Results
01/20/25
05:03
Sodium 140
Potassium 4.3
Chloride 107
Carbon Dioxide 24
BUN 20 H
Creatinine 2.5 H
Glucose 94
Calcium 8.7
Vital Signs:
Vital Signs
Temp Pulse Resp BP Pulse Ox
97.4 F 62 16 128/53 98
01/20/25 07:17 01/20/25 08:00 01/20/25 08:00 01/20/25 08:00 01/20/25 03:25
I&O
01/19/25 01/20/25 01/21/25
06:59 06:59 06:59
Intake Total 1280 / 1280 1300 / 1300
Output Total 500 / 500
Balance 780 / 780 1300 / 1300
--- NOTE | 2025-01-20 12:57 | CM ---
CM reviewed chart and met with pts . Explained role and discussed f/u with [facility] after dc. Family transporting at dc. aware dc order is in place.
CM/SW will continue to follow to ensure a safe and timely dc.
--- NOTE | 2025-01-20 14:30 | W.DCSUMMARY ---
Discharge Summary
Discharge Data
Date of Admission: 01/18/25
Date of Discharge: 01/20/25
-
Pending Results: No
Hospital Course
84 years old female with history of hypertension chronic kidney disease of presented to the emergency room for evaluation of abnormal blood work. Patient was visiting from [facility]. She reported that she had fatigue and weakness but no specific pain
or shortness of breath. Patient had baseline creatinine of 2.7 with estimated GFR around 17 mL/min. She presented with creatinine around 3.6 and potassium of 6.8. Upon admission, creatinine was 3.2 and potassium 6.1. Patient was taking
losartan/hydrochlorothiazide. She was evaluated by process environmental technician. She received intravenous fluid with treatment for hyperkalemia. Potassium level started to come down gradually with level 4.3 upon discharge. Creatinine stabilized around 2.5.
Patient started to improve. She did not have nausea or vomiting. She tolerated diet well. Renal ultrasound showed bilateral renal cortical atrophy suggestive for renal medical disease with no hydronephrosis. Patient remained hemodynamic stable.
She was advised to resume her blood pressure medication Cilnidipine. She was given prescription to do blood work after discharge and to follow-up with process environmental technician in 1 month duration. Patient and family stated that she was returning to [place] in 3
months and they had enough supply of home medications. Patient was discharged home in stable condition.
Discharge Plan
-
Patient Disposition: Home with Home Care
Discharge Diagnosis/Procedures: ISABEL on CKD stage IV
Hyperkalemia, continue low potassium diet.
Diet: As tolerated
Blood Work: bmp in one week
Referrals:
Danny Baugh MD [Family Provider] -
Kristyn Bennett MD [Active] - in one month
Prescriptions:
New
cilnidipine
10 mg PO BID Qty: 60 0RF
Continued
desloratadine 5 mg Tablet
5 mg PO DAILY
montelukast 10 mg Tablet
10 mg PO DAILY
multivitamin Capsule
2 cap PO DAILY
gabapentin 300 mg Tablet
300 mg PO HS
amino acids Capsule
1 cap PO TID
ferrous sulfate 27 mg iron Tablet
27 mg PO DAILY
Changed
torsemide 10 mg Tablet
10 mg PO DAILYPRN PRN (Reason: edema,bloating) Qty: 0 0RF
sodium bicarbonate 650 mg Tablet
1,000 mg PO TID Qty: 0 0RF
Discontinued
losartan-hydrochlorothiazide 50-12.5 mg Tablet
1 tab PO DAILY
Discharge Orders:
Discharge Patient (As Directed); Ordered 01/20/25
Ordered By: Tereza Dunham
Discharge Date and Time
Discharge Date/Time: 01/20/25 13:06
Print Language: ROMANSH
== END 2025-01-20 13:06 | disposition home health service (06) | DRG 683 ==
LOC: IMU 02:08
PROVIDERS: Emergency Medicine; Hospitalist; Nurse Practitioner; Nurse Practitioner Family; ADMITTING PHYSICIAN Hospitalist; ATTENDING PHYSICIAN Internal Medicine; CONSULT PHYSICIAN Internal Medicine Nephrology; EMERGENCY PHYSICIAN Student in an Organized Health Care Education/Training Program; FAMILY PHYSICIAN Internal Medicine
DX: N17.9 Acute kidney failure, unspecified (principal); E87.22 Chronic metabolic acidosis; I13.0 Hypertensive heart and chronic kidney disease with heart failure and stage 1 through stage 4 chronic kidney disease, or unspecified chronic kidney disease; I50.32 Chronic diastolic (congestive) heart failure; N18.4 Chronic kidney disease, stage 4 (severe); E87.5 Hyperkalemia; D63.1 Anemia in chronic kidney disease; Z79.899 Other long term (current) drug therapy
CPT/HCPCS: 76770; 80048; 80053; 81003; 81015; 82962; 83735; 84132; 85025; 85027; 93005; 96374; 96375; 99285